=== PATIENT | female | born 1980 | race Caucasian/White ===

== ENCOUNTER 2017-01-09 16:52 | Emergency (ER) | payer OTHER ==
[~2017-01-09] VITALS: Ht 165.1 cm; Wt 75.8 kg
--- NOTE | 2017-01-09 17:13 | ED GI/GU/ABDOMINAL COMPLAINT ---
History of Present Illness General Chief Complaint: Abdominal Pain/Flank Pain Stated Complaint: ABD PAIN AND VOMITING Source: patient Exam Limitations: no limitations Vital Signs & Intake/Output Vital Signs & Intake/Output Vital Signs Date Time Temp Pulse Resp B/P B/P Pulse O2 O2 Flow FiO2 Mean Ox Delivery Rate 01/09 2133 75 118/74 01/09 2023 78 18 121/75 98 Room Air 01/09 1658 97.8 88 16 145/97 98 Room Air Allergies Coded Allergies: ciprofloxacin (From CIPRO) (NAUSEA 01/09/17) pomegranate (ANAPHYLAXIS 01/09/17) Reconcile Medications Biotin (Unknown Strength) TABLET (Unknown Dose) PO DAILY SUPPLEMENT (Reported ) Cholecalciferol (Vitamin D3) (Vitamin D) (Unknown Strength) TABLET (Unknown Dose) PO DAILY SUPPLEMENT (Reported) Cyanocobalamin (Vitamin B-12) (Unknown Strength) TABLET (Unknown Dose) PO DAILY SUPPLEMENT (Reported) Fexofenadine HCl (Isabelle Allergy) 180 MG TABLET 1 TAB PO PRN ALLERGIES ( Reported) Ketorolac Tromethamine 10 MG TABLET 1 TAB PO TID PRN PAIN Metoclopramide HCl (Reglan) 10 MG TABLET 1 TAB PO 4 TIMES/DAY PRN NAUSEA Multivitamin (Multi-Day Vitamins) 1 EACH TABLET 1 TAB PO DAILY SUPPLEMENT ( Reported) Naproxen Sodium (Aleve) 220 MG CAPSULE 1 CAP PO PRN PAIN (Reported) Norgestimate-Ethinyl Estradiol (Ortho Tri-Cyclen Lo Tablet) 7VABSB2 LO TABLET 1 TAB PO DAILY CONTROL (Reported) Ondansetron HCl (Zofran) 4 MG TABLET 1 TAB PO Q6-8P PRN NAUSEA Oxycodone HCl/Acetaminophen (Percocet 5-325 MG Tablet) 5 MG-325 MG TABLET 1 TAB PO TID PRN PAIN Sulfamethoxazole/Trimethoprim (Bactrim Ds Tablet) 800 MG-160 MG TABLET 1 TAB PO BID UTI Tamsulosin HCl (Flomax) 0.4 MG CAP.ER.24H 1 CAP PO DAILY KIDNEY STONE Triage Note: PT STATES SHE HAS BEEN VOMITING FOR THE PAST 2 HOURS AND NOW SHE STATES SHE HAS PAIN IN HER RIGHT LOWER ABD. PT STATES SHE DID HAVE DIARRHEA YESTERDAY Triage Nurses Notes Reviewed? yes ? N Is pt currently ? No Onset: Abrupt Duration: constant Timing: single episode today Quality/Severity: sharpness, severe, stabbing Severity Numbers: 10 Location: right flank Radiation: no radiation Activities at Onset: eating HPI: Patient is a 36-year-old female who presents emergency room with concerns of a 2 hour history of sharp stabbing severe right-sided flank pain. Patient states that she was in her normal state of health today patient ate a hamburger and 5 minutes later patient began complaining of right-sided flank pain. Patient has had multiple episodes of nonbloody nonbilious emesis. Patient does state that yesterday she had loose watery diarrhea production however she states that she has had positive sick contacts as her child has had similar symptoms this week. Patient denies any recent antibiotic use. Denies any fever chills chest pain shortness of breath back pain dysuria hematuria vaginal bleeding vaginal discharge. Patient is status post remote appendectomy (SUSAN CASTELAN) Past History Travel History Traveled to [place] past 21 day No Medical History Any Pertinent Medical History? none Surgical History Surgical History: appendectomy, Psychosocial History What is your primary language [place]ican Tobacco Use: Never used ETOH Use: occasional use Illicit Drug Use: denies illicit drug use Family History Hx Contributory? No (SUSAN CASTELAN) Review of Systems Review of Systems Constitutional: Reports: no symptoms. EENTM: Reports: no symptoms. Respiratory: Reports: no symptoms. Cardiovascular: Reports: no symptoms. GI: Reports: see HPI, abdominal pain, nausea, vomiting. Genitourinary: Reports: no symptoms. Musculoskeletal: Reports: no symptoms. Skin: Reports: no symptoms. Neurological/Psychological: Reports: no symptoms. Hematologic/Endocrine: Reports: no symptoms. Immunologic/Allergic: Reports: no symptoms. All Other Systems: Reviewed and Negative (SUSAN CASTELAN) Physical Exam Physical Exam General Appearance: moderate distress Head: atraumatic Eyes: Bilateral: normal appearance. Ears, Nose, Throat, Mouth: hearing grossly normal Neck: normal inspection Respiratory: normal breath sounds, chest non-tender Cardiovascular: regular rate/rhythm Gastrointestinal: normal bowel sounds, soft, RIGHT FLANK POINT TENDERNESS, NO RIGHT UPPER QUADRANT PAIN NO PERITONEAL SIGNS Back: normal inspection Extremities: normal range of motion Neurologic/Psych: no motor/sensory deficits, awake Core Measures ACS in differential dx? No Severe Sepsis Present: No Septic Shock Present: No (SUSAN CASTELAN) Progress Differential Diagnosis: AAA, AMI, biliary colic, bowel obstruction, cholecystitis, diverticulitis, ectopic , endometritis, esophageal varices, gastritis, hepatitis, hernia, hemorrhoids, ischemic bowel, inflamm bowel dis, intrauterine , kidney stone, ovarian cyst, ovarian torsion, pancreatitis, PID/cervicitis, peptic ulcer, PUD/GERD, perforated viscous, SBO, threatened AB, UTI/pyelo Plan of Care: Orders Procedure Date/time Status Add-on Test (ER Only) 01/09 2029 Active CULTURE,URINE 01/10 2008 Active URINALYSIS 01/09 1722 Complete LIPASE 01/09 1722 Complete HUMAN BETA HCG SCREEN 01/09 1722 Complete DIRECT BILIRUBIN 01/09 1722 Complete COMPREHENSIVE METABOLIC PANEL 01/09 1722 Complete CBC WITHOUT DIFFERENTIAL 01/09 1722 Complete AMYLASE 01/09 1722 Complete Laboratory Tests 01/09/172021: Lactic Acid Cancelled 01/09/172007: Urinalysis MOD H, Urine Color YEL, Urine Clarity HAZY H, Urine pH 7.5, Ur Specific [place] 1.015, Urine Protein NEG, Urine Ketones NEG, Urine Nitrite NEG, Urine Bilirubin NEG, Urine Urobilinogen 0.2, Ur Leukocyte Esterase TRACE H, Ur Microscopic SEDIMENT EXAMINED, Urine RBC 10-15 H, Ur Epithelial Cells FEW, Urine Bacteria FEW H, Urine Hemoglobin LARGE H, Urine Glucose NEG 01/09/171723: Anion Gap 12, Estimated GFR > 60, BUN/Creatinine Ratio 18.8, Glucose 83, Calcium 9.6, Total Bilirubin 0.3, Direct Bilirubin 0.2, AST 16, ALT 29, Alkaline Phosphatase 81, Total Protein 7.9, Albumin 4.6, Globulin 3.3, Albumin/Globulin Ratio 1.4, Amylase 67, Lipase 52, Total Beta HCG NEGATIVE, CBC w Diff NO MAN DIFF REQ, RBC 4.77, MCV 87.9, MCH 29.1, RDW 13.1, MPV 7.3 L, Gran % 62.8, Lymphocytes % 26.6, Monocytes % 8.0, Eosinophils % 2.3, Basophils % 0.3, Absolute Granulocytes 6.0, Absolute Lymphocytes 2.5, Absolute Monocytes 0.8 H, Absolute Eosinophils 0.2, Absolute Basophils 0, PUBS MCHC 33.1 Microbiology 01/10 2008 URINE ROUT: Urine Culture - RECD Patient on initial examination has concerns of nephrolithiasis of the right flank. CT scan showed a 5 mm stone to the UVJ. Patient had significant resolution of nausea and vomiting with above medications of morphine and ketorolac and anti-EMETICS. Patient was able tolerate by mouth urine culture pending and patient will be placed with Bactrim. Patient was strongly advised to follow-up with urologist. Upon discharge patient with no apparent distress and will comply with discharge instructions and had no questions (FRANCOISE HWANG,SUSAN) Diagnostic Imaging: Viewed by Me: CT Scan. Radiology Impression: acute abnormality Initial ED EKG: none Comments: PATIENT: EVA VERMA PRESENT AGE: 36 PATIENT ACCOUNT NO: [id number] : 81 LOCATION: [facility] ORDERING PHYSICIAN: SUSAN HWANG SERVICE DATE: 01/09/17 EXAM TYPE: CAT - CT ABD & PELVIS W/O IV CONTRAS EXAMINATION: CT ABDOMEN AND PELVIS WITHOUT CONTRAST CLINICAL INFORMATION: Left flank pain. COMPARISON: No relevant prior studies are available for comparison. TECHNIQUE: Multidetector volumetric imaging was performed from the superior aspect of the liver through the pubic symphysis. Sagittal and coronal reformatted images were obtained on the technologist's workstation. DLP: 389.17 mGy-cm. FINDINGS: LUNG BASES: The visualized lung bases are unremarkable. LIVER, GALLBLADDER, AND BILIARY TREE: The liver is normal in size, shape, and attenuation. No focal hepatic lesion or biliary ductal dilatation is present. There is faint layering density within the gallbladder, which could represent sludge versus stones. There is no gallbladder wall thickening or pericholecystic inflammatory change to suggest acute cholecystitis. PANCREAS: Unremarkable. SPLEEN: The spleen is unremarkable. There is a small splenule anterior to the spleen. ADRENAL GLANDS: Unremarkable. KIDNEYS AND URETERS: A 5 mm stone is noted within the distal right ureter, just proximal to the ureterovesicular junction. There is moderate proximal hydroureteronephrosis with mild periureteral fat stranding. The stone can be seen on the fisher trap radiograph. There is no left-sided hydronephrosis or nephrolithiasis. BLADDER: Nondistended. GASTROINTESTINAL TRACT: There is no large or small bowel obstruction. A 6 mm calcification is seen adjacent to the distal cecum, which could represent an appendicolith. The appendix is unremarkable. No intra-abdominal free air or free fluid is identified. ABDOMINAL WALL: No significant hernia is appreciated. LYMPH NODES: Normal. VASCULAR: The abdominal aorta is nondilated. The IVC is unremarkable. PELVIC VISCERA: The uterus and adnexa are unremarkable. OSSEOUS STRUCTURES: No lytic or blastic osseous lesion. IMPRESSION: 1. Distal right ureteral stone measuring 5 mm located just proximal to the ureterovesicular junction. Moderate proximal hydroureteronephrosis with mild periureteral fat stranding. The stone is seen on the fisher trap radiograph. No left-sided hydronephrosis or nephrolithiasis. 2. Faint layering density within the gallbladder which could represent sludge versus stones. No pericholecystic inflammatory change to suggest acute cholecystitis. 3. Probable appendicolith. The appendix is otherwise unremarkable. DICTATED BY: KANWAL CRAVEN MD DATE/TIME DICTATED:01/09/171901 SEED TESTER:KHOI (SUSAN CASTELAN) Departure Departure Disposition: HOME OR SELF CARE Condition: Stable Clinical Impression Primary Impression: Right kidney stone Secondary Impressions: UTI (urinary tract infection) Referrals: [facility] PRATT,KIRSTY DAVIDSON MD,CARLA (PCP/Family) Additional Instructions: As discussed begin the prescription of ketorolac for pain and begin the prescription of Percocet for breakthrough pain relief. Begin a prescription of Flomax for your symptoms. If symptoms worsen return to emergency room. On Tuesday follow-up with urologist DR. ARVIZU for further evaluation treatment. Begin the prescription of Bactrim as directed for your urine infection BEGIN THE PRESCRIPTION OF REGLAN AND ZOFRAN FOR NAUSEA Departure Forms: Customer Survey General Discharge Information Prescriptions: Current Visit Scripts Ketorolac Tromethamine 1 TAB PO TID PRN PAIN #15 TAB Oxycodone HCl/Acetaminophen (Percocet 5-325 MG Tablet) 1 TAB PO TID PRN PAIN #12 TAB Tamsulosin HCl (Flomax) 1 CAP PO DAILY #15 CAP Sulfamethoxazole/Trimethoprim (Bactrim Ds Tablet) 1 TAB PO BID #20 TAB Ondansetron HCl (Zofran) 1 TAB PO Q6-8P PRN NAUSEA #15 TAB Metoclopramide HCl (Reglan) 1 TAB PO 4 TIMES/DAY PRN NAUSEA #12 TAB (SUSAN CASTELAN) PA/GRAPHICS EDIT TECHNICIAN Co-Sign Statement Statement: ED Attending supervision documentation- [] I saw and evaluated the patient. I have also reviewed all the pertinent lab results and diagnostic results. I agree with the findings and the plan of care as documented in the PA's/GRAPHICS EDIT TECHNICIAN's documentation. [X] I have reviewed the ED Record and agree with the PA's/GRAPHICS EDIT TECHNICIAN's documentation. [] Additions or exceptions (if any) to the PAs/GRAPHICS EDIT TECHNICIAN's note and plan are summarized below: [] (BENITA PRATT,RENARD العراقي)
[2017-01-09 17:38] LABS: ABSOLUTE BASOPHIL COUNT 0 /CUMM (0.0-0.2); ABSOLUTE EOSINOPHIL COUNT 0.2 /CUMM (0.0-0.7); ABSOLUTE LYMPH COUNT 2.5 /CUMM (1.2-3.4); ABSOLUTE MONOCYTE COUNT 0.8 /CUMM (0.10-0.60); BASOPHIL % 0.3 % (0.0-2.0); EOSINOPHIL % 2.3 % (0-5); GRANULOCYTE % 62.8 % (42.2-75.2); HEMATOCRIT 41.9 % (37-47); MEAN CORPUSCULAR HGB 29.1 PG (27.0-31.0); MEAN CORPUSCULAR HGB CONC 33.1 G/DL (33.0-37.0); MEAN CORPUSCULAR VOLUME 87.9 FL (81.0-99.0); MEAN PLATELET VOLUME 7.3 FL (7.4-10.4); PLATELET COUNT 328 /CUMM (130-400); RBC DISTRIBUTION WIDTH 13.1 % (11.5-14.5); RED BLOOD CELL CT 4.77 /CUMM (4.20-5.40); WHITE BLOOD CELL COUNT 9.6 /CUMM (4.8-10.8)
[2017-01-09] MEDS ORDERED: VITAMIN D2000 UNI1 PO (18:18)
[2017-01-09] MEDS ORDERED: VITAMIN B-121000 MC3 PO (18:18)
[2017-01-09] MEDS ORDERED: ORTHO TRI-CYCL1 EAC1 PO (18:18)
[2017-01-09] MEDS ORDERED: ALLEGRA ALLERG180 M1 PO (18:19)
[2017-01-09] MEDS ORDERED: MULTI-DAY VITA1 EACH PO (18:20)
[2017-01-09] MEDS ORDERED: ALEVE220 M1 PO (18:20)
[2017-01-09] MEDS ORDERED: BIOTIN5 M2 PO (18:20)
--- NOTE | 2017-01-09 19:16 | CT SCAN REPORT ---
EXAMINATION: CT ABDOMEN AND PELVIS WITHOUT CONTRAST CLINICAL INFORMATION: Left flank pain. COMPARISON: No relevant prior studies are available for comparison. TECHNIQUE: Multidetector volumetric imaging was performed from the superior aspect of the liver through the pubic symphysis. Sagittal and coronal reformatted images were obtained on the technologist's workstation. DLP: 389.17 mGy-cm. FINDINGS: LUNG BASES: The visualized lung bases are unremarkable. LIVER, GALLBLADDER, AND BILIARY TREE: The liver is normal in size, shape, and attenuation. No focal hepatic lesion or biliary ductal dilatation is present. There is faint layering density within the gallbladder, which could represent sludge versus stones. There is no gallbladder wall thickening or pericholecystic inflammatory change to suggest acute cholecystitis. PANCREAS: Unremarkable. SPLEEN: The spleen is unremarkable. There is a small splenule anterior to the spleen. ADRENAL GLANDS: Unremarkable. KIDNEYS AND URETERS: A 5 mm stone is noted within the distal right ureter, just proximal to the ureterovesicular junction. There is moderate proximal hydroureteronephrosis with mild periureteral fat stranding. The stone can be seen on the vp security radiograph. There is no left-sided hydronephrosis or nephrolithiasis. BLADDER: Nondistended. GASTROINTESTINAL TRACT: There is no large or small bowel obstruction. A 6 mm calcification is seen adjacent to the distal cecum, which could represent an appendicolith. The appendix is unremarkable. No intra-abdominal free air or free fluid is identified. ABDOMINAL WALL: No significant hernia is appreciated. LYMPH NODES: Normal. VASCULAR: The abdominal aorta is nondilated. The IVC is unremarkable. PELVIC VISCERA: The uterus and adnexa are unremarkable. OSSEOUS STRUCTURES: No lytic or blastic osseous lesion. IMPRESSION: 1. Distal right ureteral stone measuring 5 mm located just proximal to the ureterovesicular junction. Moderate proximal hydroureteronephrosis with mild periureteral fat stranding. The stone is seen on the vp security radiograph. No left-sided hydronephrosis or nephrolithiasis. 2. Faint layering density within the gallbladder which could represent sludge versus stones. No pericholecystic inflammatory change to suggest acute cholecystitis. 3. Probable appendicolith. The appendix is otherwise unremarkable.
[2017-01-09] MEDS ORDERED: KETOROLAC TROME10 M1 PO (19:34)
[2017-01-09] MEDS ORDERED: PERCOCET 5-3251 EACH PO (19:34)
[2017-01-09] MEDS ORDERED: FLOMAX0.4 M1 PO (19:34)
[2017-01-09] MEDS ORDERED: BACTRIM DS TAB1 EACH PO (20:30)
[2017-01-09] MEDS ORDERED: ZOFRAN4 M2 PO (21:13)
[2017-01-09] MEDS ORDERED: REGLAN10 M1 PO (21:13)
[2017-01-09 21:33] VITALS: BP 118/74
== END 2017-01-09 21:33 ==
LOC: ERH 16:52
PROVIDERS: Physician Assistant
DX: N20.0 Calculus of kidney (principal); N39.0 Urinary tract infection, site not specified
CPT/HCPCS: 74176; 81001; 87086; 96374; 96375; 96376; J1885; J2405; J2765